=== PATIENT | female | born 1945 | race African-American/Black ===

== ENCOUNTER 2018-06-09 16:01 | Inpatient (IN) | payer MEDICARE, MEDICAID ==
[~2018-06-09] VITALS: Ht 271.8 cm; Wt 113.9 kg
[~2018-06-09 16:01] MED LIST: ALBU6.7H IH; FLUT1DIS3 IH; FURO-151 PO; Lisinopril PO; P50 PO
[2018-06-09] MEDS ORDERED: SODIUM CHLORIDE 0.9% 1,000 ML IV ONE (18:33)
[2018-06-09] MEDS ORDERED: ONDANSETRON HCL 4MG/2ML INJ IV STA (18:33)
[2018-06-09] MEDS ORDERED: ASPIRIN 81MG TABLET PO ONE (18:45)
[2018-06-09 21:44] LABS: BASOPHILS % 0.6 % (0.0-2.0); EOSINOPHILS % 3.4 % (0.0-5.0); HEMATOCRIT. 39.5 % (36.0-48.0); HEMOGLOBIN. 12.9 g/dL (12.0-16.0); MEAN CORPUSCULAR VOLUME 112.8 fL (81.0-99.0); MONOCYTES % 11.1 % (2.0-8.0); NEUTROPHILS % 52.9 % (40.0-76.0); PLATELET 274 x1000/uL (130-400); RED CELL DISTRIBUTION WIDTH 18.3 % (11.6-14.6)
[2018-06-09 21:49] LABS: CHLORIDE 107 mEq/L (98-107)
[2018-06-09 22:14] LABS: PLATELET ESTIMATE NORMAL
[2018-06-10] MEDS ORDERED: LORAZEPAM 0.5MG TABLET PO PRN
[2018-06-10] MEDS ORDERED: ENOXAPARIN 40MG/0.4ML SYR SUBCUT SCH
[2018-06-10] MEDS ORDERED: IPRATROPIUM/ALBUTEROL 0.5-3(2.5)MG/3ML NEB INH PRN
[2018-06-10] MEDS ORDERED: CLONIDINE 0.1MG TABLET PO PRN
[2018-06-10] MEDS ORDERED: MORPHINE SULFATE 4 MG/ML CPJ (NOT FOR IM USE) IV PRN
[2018-06-10] MEDS ORDERED: ONDANSETRON HCL 4MG/2ML INJ IV PRN
[2018-06-10] MEDS ORDERED: ACETAMINOPHEN 325MG TABLET PO PRN
[2018-06-10 11:07] LABS: CREATINE KINASE 84 IU/L (26-192)
[2018-06-10 11:08] LABS: CREATINE KINASE MB FRACTION 1.6 ng/mL (0.5-3.6)
[2018-06-10 13:29] LABS: CLARITY URINE CLEAR (CLEAR); COLOR URINE YELLOW (YELLOW); KETONES URINE NEGATIVE (NEGATIVE); LEUKOCYTE ESTERASE URINE NEGATIVE (NEGATIVE); NITRITE URINE NEGATIVE (NEGATIVE); OCCULT BLOOD URINE NEGATIVE (NEGATIVE); PH URINE 7.5 (4.5-8.0); PROTEIN URINE NEGATIVE (NEGATIVE); SPECIFIC GRAVITY URINE 1.011 (1.005-1.030)
[2018-06-10 13:48] LABS: *AMPHETAMINES SCREEN URINE NEGATIVE (NEGATIVE); *BARBITURATES SCREEN URINE NEGATIVE (NEGATIVE)
[2018-06-10 13:49] LABS: *BENZODIAZEPINES SCREEN URINE NEGATIVE (NEGATIVE); *COCAINE SCREEN URINE PRESUMTIVE POSITIVE (NEGATIVE)
[2018-06-10 13:51] LABS: METHADONE URINE SCREEN NEGATIVE (NEGATIVE); OPIATES URINE SCREEN NEGATIVE (NEGATIVE)
[2018-06-10 13:52] LABS: CANNABINOID URINE SCREEN NEGATIVE (NEGATIVE); PHENCYCLIDINE URINE SCREEN NEGATIVE (NEGATIVE)
[2018-06-10 16:18] VITALS: BP 162/81
[2018-06-10 17:59] LABS: CREATINE KINASE 77 IU/L (26-192)
[2018-06-10 18:01] LABS: CREATINE KINASE MB FRACTION 1.6 ng/mL (0.5-3.6)
[2018-06-10] MEDS: ENOXAPARIN 30MG/0.3ML SYR SUBCUT SCH ×2 (18:24→21:00)
[2018-06-10] MEDS: HYDROCODONE/ACETAMINOPHEN 5/325MG TABLET PO PRN (18:31)
[2018-06-10 20:00] VITALS: BP 156/70
[2018-06-11] VITALS: BP 125/50
[2018-06-11] MEDS: HYDROCODONE/ACETAMINOPHEN 5/325MG TABLET PO PRN ×3 (03:20→20:41)
[2018-06-11 04:00] VITALS: BP 154/68
[2018-06-11 06:10] LABS: BASOPHILS % 0.9 % (0.0-2.0); EOSINOPHILS % 3.5 % (0.0-5.0); HEMATOCRIT. 39.7 % (36.0-48.0); LYMPHOCYTES % 38.5 % (20.0-50.0); MEAN CORPUSCULAR HEMOGLOBIN 36.9 pg (28.0-32.0); MEAN CORPUSCULAR VOLUME 112.6 fL (81.0-99.0); MEAN PLATELET VOLUME 7.4 fl (7.4-10.4); MONOCYTES % 9.8 % (2.0-8.0); NEUTROPHILS % 47.3 % (40.0-76.0); PLATELET 289 x1000/uL (130-400); RED BLOOD CELL COUNT 3.53 mill/uL (4.2-5.4); RED CELL DISTRIBUTION WIDTH 18.1 % (11.6-14.6)
[2018-06-11 06:46] LABS: CHLORIDE 104 mEq/L (98-107)
[2018-06-11 06:55] LABS: PHOSPHORUS 3.5 mg/dL (2.5-4.9)
[2018-06-11 08:00] VITALS: BP 150/62
[2018-06-11] MEDS: ENOXAPARIN 30MG/0.3ML SYR SUBCUT SCH ×2 (08:52→20:40)
[2018-06-11 12:00] VITALS: BP 114/69
[2018-06-11] MEDS: AMLODIPINE 5MG TABLET PO SCH ×2 (13:19→20:40)
[2018-06-11] MEDS: FUROSEMIDE 40MG/4ML VIAL IVP SCH (13:19)
[2018-06-11] MEDS: ASPIRIN 81MG TABLET PO SCH (13:20)
[2018-06-11 16:00] VITALS: BP 134/61
[2018-06-11] MEDS: LISINOPRIL 10MG TABLET PO SCH (20:40)
[2018-06-12] VITALS: BP 135/60
[2018-06-12 04:00] VITALS: BP 140/60
[2018-06-12 06:54] LABS: BASOPHILS % 1.2 % (0.0-2.0); EOSINOPHILS % 4.1 % (0.0-5.0); HEMATOCRIT. 40.5 % (36.0-48.0); HEMOGLOBIN. 13.5 g/dL (12.0-16.0); LYMPHOCYTES % 31.2 % (20.0-50.0); MEAN CORPUSCULAR HEMOGLOBIN 37.2 pg (28.0-32.0); MEAN CORPUSCULAR VOLUME 111.6 fL (81.0-99.0); MEAN PLATELET VOLUME 6.9 fl (7.4-10.4); MONOCYTES % 9.9 % (2.0-8.0); NEUTROPHILS % 53.6 % (40.0-76.0); PLATELET 316 x1000/uL (130-400); RED BLOOD CELL COUNT 3.63 mill/uL (4.2-5.4); RED CELL DISTRIBUTION WIDTH 17.8 % (11.6-14.6)
[2018-06-12 07:10] LABS: CHLORIDE 103 mEq/L (98-107)
[2018-06-12 08:00] VITALS: BP 144/61
[2018-06-12] MEDS: ASPIRIN 81MG TABLET PO SCH (08:53)
[2018-06-12] MEDS: ENOXAPARIN 30MG/0.3ML SYR SUBCUT SCH (08:53)
[2018-06-12] MEDS: AMLODIPINE 5MG TABLET PO SCH (08:54)
[2018-06-12] MEDS: HYDROCODONE/ACETAMINOPHEN 5/325MG TABLET PO PRN (08:54)
[2018-06-12] MEDS: LISINOPRIL 10MG TABLET PO SCH (08:54)
[2018-06-12] MEDS: FUROSEMIDE 40MG/4ML VIAL IVP SCH (09:31)
[2018-06-12 12:00] VITALS: BP 131/55
[2018-06-12 12:45] VITALS: BP 131/55
== END 2018-06-12 13:27 | disposition home or self-care (01) | DRG 816 ==
LOC: ER 16:01 → 6WST 23:03 → ENRESERV 06-10 14:12
PROVIDERS: ADMIT Internal Medicine Nephrology; ATTEND Internal Medicine Nephrology
DX: T40.5X1A Poisoning by cocaine, accidental (unintentional), initial encounter (principal); J96.90 Respiratory failure, unspecified, unspecified whether with hypoxia or hypercapnia; I50.21 Acute systolic (congestive) heart failure; I42.9 Cardiomyopathy, unspecified; J44.9 Chronic obstructive pulmonary disease, unspecified; I45.81 Long QT syndrome; E66.9 Obesity, unspecified; F14.10 Cocaine abuse, uncomplicated; M17.0 Bilateral primary osteoarthritis of knee; I11.0 Hypertensive heart disease with heart failure; Z82.49 Family history of ischemic heart disease and other diseases of the circulatory system; Z71.51 Drug abuse counseling and surveillance of drug abuser; Z68.1 Body mass index [BMI] 19.9 or less, adult; Z88.0 Allergy status to penicillin; Z86.73 Personal history of transient ischemic attack (TIA), and cerebral infarction without residual deficits; Y92.89 Other specified places as the place of occurrence of the external cause
CPT/HCPCS: 36415; 71045; 73560; 80048; 80061; 80305; 82550; 82553; 83036; 83735; 83880; 84100; 84443; 84484; 93005; 93306; 96361; 96374; 97116; 97162; 97530; 99285; C1893; J1650; J1940; J2405; J7030